=== PATIENT | female | born 1950 | race Caucasian/White ===

== ENCOUNTER 2020-12-22 09:56 | Outpatient (REF) | payer MEDICARE, MEDICAID, SELFPAY ==
--- NOTE | ~2020-12-22 | MM_ITS ---
EXAMINATION: BONE DENSITOMETRY CLINICAL INDICATION: Disorder of bone. COMPARISON: Baseline BD dated 03/01/2016. TECHNIQUE: Using a [employer] DXA System (software version: 13.1) manufactured by [employer], dual-energy x-ray absorptiometry was performed of the lumbar spine and left hip. The images are of good technical quality. Summary results are attached. FINDINGS: AP SPINE L1-L4: Current: BMD 0.910 g/cm2, Z-score -0.3, T-score -2.3, osteopenia, 4.4% decrease from baseline (<5% change is not significant). Baseline: BMD 0.952 g/cm2. LEFT FEMUR, NECK: Current: BMD 0.691 g/cm2, Z-score -0.6, T-score -2.5, osteoporosis. Baseline: BMD 0.715 g/cm2. LEFT FEMUR, TOTAL: Current: BMD 0.736 g/cm2, Z-score -0.5, T-score -2.2, osteopenia, 9.6% decrease from baseline (<5% change is not significant). Baseline: BMD 0.814 g/cm2. IDENTIFIED RISK FACTORS: Early menopause, secondary osteoporosis. HISTORY OF FRACTURE: None listed. MEDICATIONS: Vitamin D. MM/XR DEXA axial skeleton IMPRESSION: 1. DIAGNOSIS: Osteoporosis based on the lowest T-score value of -2.5 in the femoral neck applying World Health Organization criteria. 2. 10-YEAR FRACTURE RISK PREDICTION, FRAX: Major osteoporotic fracture (clinical spine, forearm, hip or shoulder) 13.1%. Hip fracture 3.4%. 3. Treatment Recommendations: NOF guidelines recommend consideration for treatment in postmenopausal women and men age 50 and older presenting with the following: -A hip or vertebral (clinical or morphometric) fracture. -T-score less than or equal to -2.5 at the femoral neck or spine after appropriate evaluation to exclude secondary causes. -Low bone mass at the hip or spine and a 10-year fracture probability by FRAX of greater than or equal to 3% for hip fracture or greater than or equal to 20% for major osteoporotic fracture based on the [place] adapted WHO algorithm. 4. Other Recommendations: All treatment decisions require clinical judgment and consideration of individual patient factors, including patient preferences, comorbidities, previous drug use, risk factors not captured in the FRAX model (e.g. frailty, falls, vitamin D deficiency, increased bone turnover, interval significant decline in bone density) and possible under or overestimation of fracture risk by FRAX. Additional medical evaluation for secondary cause of low bone mineral density may be appropriate. FUTURE SCAN RECOMMENDATION: People with diagnosed cases of osteoporosis or at high risk for fracture should have regular bone mineral density tests. For patients eligible for Medicare, routine testing is allowed once every 2 years. The testing frequency can be increased to one year for patients who have rapidly progressing disease, those who are receiving or discontinuing medical therapy to restore bone mass, or have additional risk factors.
--- NOTE | ~2020-12-22 | MM_ITS ---
EXAMINATION: MM SCREENING DIGITAL BREAST TOMOSYNTHESIS, BILATERAL CLINICAL INFORMATION: Screening. Asymptomatic. The lifetime risk of breast cancer based on the Tyrer-Cuzick Model is 3%. COMPARISON: Mammography: 12/16/2019, 12/10/2018, 09/26/2017, 08/31/2016, 05/19/2015 TECHNIQUE: Digital breast tomosynthesis is performed in both the craniocaudal and mediolateral oblique views along with computer-aided detection (CAD). Synthesized 2D images are generated from the tomosynthesis. FINDINGS: There are scattered areas of fibroglandular density (ACR BI-RADS breast composition Category b). There are no significant masses, abnormal calcifications, or other abnormalities. There is no developing density. The skin contours are smooth. There are chronic coarse calcifications in otherwise unremarkable left axillary nodes similar to prior studies. This may be related to remote granulomatous changes. Tattoo pigment may have a similar appearance. There are no significant changes from prior exams. MM/MM tomosynthesis screening BI IMPRESSION: No mammographic evidence of malignancy. ASSESSMENT: BI-RADS 2: Benign RECOMMENDATION: Routine annual mammography screening. This patient's information was entered into a reminder system with a target due date for their next mammogram.
== END 2020-12-22 09:57 | disposition home or self-care (01) ==
LOC: HO.MAMMO 09:56
PROVIDERS: Visit Provider Internal Medicine
DX: Z12.31 Encounter for screening mammogram for malignant neoplasm of breast (principal); Z13.820 Encounter for screening for osteoporosis; M81.0 Age-related osteoporosis without current pathological fracture; M89.9 Disorder of bone, unspecified; Z78.0 Asymptomatic menopausal state; Z79.899 Other long term (current) drug therapy
CPT/HCPCS: 77063; 77067; 77080

== ENCOUNTER 2021-12-27 07:47 | Outpatient (REF) | payer MEDICARE, MEDICAID, SELFPAY ==
--- NOTE | ~2021-12-27 | MM_ITS ---
EXAMINATION: MM SCREENING DIGITAL BREAST TOMOSYNTHESIS, BILATERAL CLINICAL INFORMATION: Screening. Asymptomatic. The lifetime risk of breast cancer based on the Tyrer-Cuzick Model is 2%. COMPARISON: Mammography: 12/22/2020, 12/16/2019, 12/10/2018 TECHNIQUE: Digital breast tomosynthesis is performed in both the craniocaudal and mediolateral oblique views along with computer-aided detection (CAD). Synthesized 2D images are generated from the tomosynthesis. FINDINGS: There are scattered areas of fibroglandular density (ACR BI-RADS breast composition Category b). There are no significant masses, abnormal calcifications, or other abnormalities. Parenchymal pattern is similar to prior exams. No developing density. There are chronic coarse calcifications left axillary node similar to prior studies likely related to old granulomatous changes. Tattoo pigment may have similar appearance. There are no significant changes from prior studies. MM/MM tomosynthesis screening BI IMPRESSION: No mammographic evidence of malignancy. ASSESSMENT: BI-RADS 2: Benign RECOMMENDATION: Routine annual mammography screening. This patient's information was entered into a reminder system with a target due date for their next mammogram.
== END 2021-12-27 07:48 | disposition home or self-care (01) ==
LOC: HO.MAMMO 07:47
PROVIDERS: Visit Provider Internal Medicine
DX: Z12.31 Encounter for screening mammogram for malignant neoplasm of breast (principal)
CPT/HCPCS: 77063; 77067

== ENCOUNTER 2022-11-01 08:47 | Outpatient (REF) | payer MEDICARE, MEDICAID, SELFPAY ==
[2022-11-01 14:34] LABS: MANUAL DIFF FLAG NO
[2022-11-01 14:39] LABS: Basophils Absolute Auto 0.1 X10*3/uL (0.0-0.2); Basophils Percent Auto 1.1 % (0-2); Eosinophils Absolute Auto 0.1 X10*3/uL (0.0-0.4); Eosinophils Percent Auto 2.2 % (0-4); Hematocrit 40.2 % (37.0-47.0); Hemoglobin 12.9 g/dl (12.0-16.0); Imm Gran Abs Auto 0.02 X10*3/uL (0.00-0.03); Imm Gran Pct Auto 0.3 % (0.0-0.4); Lymphocytes Absolute Auto 2.4 X10*3/uL (1.2-4.9); Lymphocytes Percent Auto 37.3 % (20-40); Mean Corpuscular HGB Conc 32.1 g/dl (31.0-35.0); Mean Corpuscular Hemoglobin 31.7 pg (27.0-33.0); Mean Corpuscular Volume 98.8 fL (80.0-98.0); Mean Platelet Volume 10.4 fL (9.4-12.3); Monocytes Absolute Auto 0.6 X10*3/uL (0.1-1.2); Monocytes Percent Auto 9.1 % (2-11); Neutrophils Absolute Auto 3.3 x10*3/uL (2.0-8.3); Platelet Count 289 X10*3/uL (160-400); Red Blood Count 4.07 X10*6/uL (4.20-5.50); Red Cell Distribution Width 14.9 % (11.0-16.0); White Blood Count 6.5 X10*3/uL (4.8-10.8)
[2022-11-01 15:31] LABS: Alanine Aminotransferase 41 U/L (0-31); Albumin Level 4.6 g/dL (3.5-5.0); Alkaline Phosphatase 80 U/L (39-117); Anion Gap 18 (12-20); Aspartate Amino Transferase 46 U/L (5-31); Bilirubin Total 0.8 mg/dL (0.0-1.0); Blood Urea Nitrogen 9 mg/dL (9-16); Calcium 9.9 mg/dL (8.4-10.2); Carbon Dioxide 23 mmol/L (22-29); Chloride 105 mmol/L (96-108); Cholesterol 248 mg/dL; Estimated Glomerular Filt Rate > 60; Glucose Fasting 67 mg/dL (60-99); HDL Cholesterol 90 mg/dL; LDL Cholesterol Calculated 134 mg/dl; Potassium 3.7 mmol/L (3.3-5.1); Sodium 142 mmol/L (135-145); Total Protein 7.5 g/dL (6.5-8.0); Triglycerides 124 mg/dL
[2022-11-01 15:48] LABS: TSH reflex Free T4 2.63 uIU/mL (0.32-4.0)
== END 2022-11-01 08:48 | disposition home or self-care (01) ==
LOC: HO.CHCLDS 08:47
PROVIDERS: Visit Provider Internal Medicine
DX: E78.00 Pure hypercholesterolemia, unspecified (principal); D75.89 Other specified diseases of blood and blood-forming organs
CPT/HCPCS: 36415; 80053; 80061; 84443; 85025

== ENCOUNTER 2022-12-23 09:47 | Outpatient (REF) | payer MEDICARE, MEDICAID, SELFPAY ==
--- NOTE | ~2022-12-23 | US_ITS ---
EXAMINATION: US ABDOMEN COMPLETE CLINICAL INFORMATION: Transaminitis. COMPARISON: None available. TECHNIQUE: Real-time imaging of the abdominal viscera. FINDINGS: PANCREAS: Normal. ABDOMINAL AORTA: The proximal, mid, and distal segments are normal in caliber. INFERIOR VENA CAVA: Visualized portions are normal. LIVER: The liver is normal in size. The liver contour is normal. There is diffuse increased liver parenchymal echogenicity. Anteriorly within the right hepatic lobe, a 6 mm benign, simple cyst is seen. This requires no imaging follow-up. There is no intrahepatic biliary duct dilatation seen. GALLBLADDER: Normal. The gallbladder is physiologically distended without evidence of stones, sludge, polyps, wall thickening or pericholecystic fluid. COMMON BILE DUCT: Normal in caliber measuring 0.71 cm in diameter. RIGHT KIDNEY: Normal. No hydronephrosis. No renal calculi or focal parenchymal lesions. The kidney measures 9.5 cm in maximum dimension. LEFT KIDNEY: There is mild lower pole focal cortical thinning. At the lower pole, a 6 mm benign, simple cyst is seen, which requires no imaging follow-up. No hydronephrosis or renal calculi. The kidney measures 10.5 cm in maximum dimension. SPLEEN: Normal. The spleen measures 7.7 cm in maximum dimension. FREE FLUID: None. US/US abdomen complete IMPRESSION: 1. There is generalized increase in hepatic echotexture, consistent with fatty infiltration or hepatocellular disease. Please correlate clinically. No focal hepatic mass or intrahepatic biliary dilatation is seen. 2. There is mild chronic focal cortical thinning at the lower pole of the left kidney.
== END 2022-12-23 09:48 | disposition home or self-care (01) ==
LOC: HO.US 09:47
PROVIDERS: PCP Internal Medicine; Visit Provider Internal Medicine
DX: M81.8 Other osteoporosis without current pathological fracture (principal)
CPT/HCPCS: 76700

== ENCOUNTER 2023-02-08 08:25 | Outpatient (REF) | payer MEDICARE, MEDICAID, SELFPAY ==
--- NOTE | ~2023-02-08 | MM_ITS ---
EXAMINATION: BONE DENSITOMETRY CLINICAL INDICATION: History of osteoporosis. COMPARISON: Previous BD dated 12/22/2020 and baseline BD dated 03/01/2016. TECHNIQUE: Using a [employer] DXA System (software version: 13.1) manufactured by [email or web address], dual-energy x-ray absorptiometry was performed of the lumbar spine and left hip. The images are of good technical quality. Summary results are attached. FINDINGS: LEFT FEMUR, NECK: Current: BMD 0.702 g/cm2, Z-score -0.5, T-score -2.4, osteopenia. Prior: BMD 0.691 g/cm2. Baseline: BMD 0.715 g/cm2. LEFT FEMUR, TOTAL: Current: BMD 0.761 g/cm2, Z-score -0.2, T-score -2.0, osteopenia, 3.4% increase from previous, 6.5% decrease from baseline (<5% change is not significant). Prior: BMD 0.735 g/cm2. Baseline: BMD 0.814 g/cm2. AP SPINE L1-L4: Current: BMD 0.891 g/cm2, Z-score -0.4, T-score -2.4, osteopenia, 2.1% decrease from previous, 6.4% decrease from baseline (<5% change is not significant). Prior: BMD 0.910 g/cm2. Baseline: BMD 0.952 g/cm2. IDENTIFIED RISK FACTORS: Menopause. HISTORY OF FRACTURE: None listed. MEDICATIONS: Calcium, vitamin D. MM/XR DEXA axial skeleton IMPRESSION: 1. DIAGNOSIS: Osteopenia based on the lowest T-score value of -2.4 in the lumbar spine and femur neck applying World Health Organization criteria. 2. 10-YEAR FRACTURE RISK PREDICTION, FRAX: Major osteoporotic fracture (clinical spine, forearm, hip or shoulder) 13.2%. Hip fracture 3.6%. 3. Treatment Recommendations: NOF guidelines recommend consideration for treatment in postmenopausal women and men age 50 and older presenting with the following: -A hip or vertebral (clinical or morphometric) fracture. -T-score less than or equal to -2.5 at the femoral neck or spine after appropriate evaluation to exclude secondary causes. -Low bone mass at the hip or spine and a 10-year fracture probability by FRAX of greater than or equal to 3% for hip fracture or greater than or equal to 20% for major osteoporotic fracture based on the [place] adapted WHO algorithm. 4. Other Recommendations: All treatment decisions require clinical judgment and consideration of individual patient factors, including patient preferences, comorbidities, previous drug use, risk factors not captured in the FRAX model (e.g. frailty, falls, vitamin D deficiency, increased bone turnover, interval significant decline in bone density) and possible under or overestimation of fracture risk by FRAX. Additional medical evaluation for secondary cause of low bone mineral density may be appropriate. FUTURE SCAN RECOMMENDATION: People with diagnosed cases of osteoporosis or at high risk for fracture should have regular bone mineral density tests. For patients eligible for Medicare, routine testing is allowed once every 2 years. The testing frequency can be increased to one year for patients who have rapidly progressing disease, those who are receiving or discontinuing medical therapy to restore bone mass, or have additional risk factors.
== END 2023-02-08 08:26 | disposition home or self-care (01) ==
LOC: HO.MAMMO 08:25
PROVIDERS: PCP Internal Medicine; Visit Provider Internal Medicine
DX: Z12.31 Encounter for screening mammogram for malignant neoplasm of breast (principal); Z13.820 Encounter for screening for osteoporosis; M81.8 Other osteoporosis without current pathological fracture
CPT/HCPCS: 77063; 77067; 77080

== ENCOUNTER → 2023-02-08 09:00 | Outpatient (BNV) | payer MEDICARE, MEDICAID, SELFPAY | PROVIDERS: PCP Internal Medicine; Visit Provider Radiology Diagnostic Radiology | DX: Z12.31 Encounter for screening mammogram for malignant neoplasm of breast (principal) | CPT/HCPCS: 77063; 77067 ==

== ENCOUNTER 2023-02-08 09:03 | Outpatient (REF) | payer MEDICARE, MEDICAID, SELFPAY ==
--- NOTE | ~2023-02-08 | XR_ITS ---
EXAMINATION: XR CHEST CLINICAL INFORMATION: 73-year-old female with chronic cough COMPARISON: None available. TECHNIQUE: 2 views of the chest were obtained. FINDINGS: No significant abnormality is noted involving the heart, lungs, mediastinum, bony thorax or soft tissues. XR/XR chest 2V IMPRESSION: Unremarkable examination.
== END 2023-02-08 09:04 | disposition home or self-care (01) ==
LOC: HO.XRAY 09:03
PROVIDERS: PCP Internal Medicine; Visit Provider Internal Medicine
DX: R05.3 Chronic cough (principal)
CPT/HCPCS: 71046

== ENCOUNTER 2023-08-04 09:22 | Outpatient (REF) | payer MEDICARE, MEDICAID, SELFPAY ==
[2023-08-04 14:44] LABS: MANUAL DIFF FLAG NO
[2023-08-04 15:19] LABS: Basophils Absolute Auto 0.1 X10*3/uL (0.0-0.2); Basophils Percent Auto 0.8 % (0-2); Eosinophils Absolute Auto 0.1 X10*3/uL (0.0-0.4); Eosinophils Percent Auto 1.2 % (0-4); Hematocrit 45.8 % (37.0-47.0); Hemoglobin 15.2 g/dl (12.0-16.0); Imm Gran Abs Auto 0.02 X10*3/uL (0.00-0.03); Imm Gran Pct Auto 0.3 % (0.0-0.4); Lymphocytes Absolute Auto 1.5 X10*3/uL (1.2-4.9); Lymphocytes Percent Auto 19.3 % (20-40); Mean Corpuscular HGB Conc 33.2 g/dl (31.0-35.0); Mean Corpuscular Hemoglobin 32.5 pg (27.0-33.0); Mean Corpuscular Volume 97.9 fL (80.0-98.0); Mean Platelet Volume 10.3 fL (9.4-12.3); Monocytes Absolute Auto 0.6 X10*3/uL (0.1-1.2); Monocytes Percent Auto 7.5 % (2-11); Neutrophils Absolute Auto 5.5 x10*3/uL (2.0-8.3); Neutrophils Percent Auto 70.9 % (45-73); Platelet Count 264 X10*3/uL (160-400); Red Blood Count 4.68 X10*6/uL (4.20-5.50); Red Cell Distribution Width 14.6 % (11.0-16.0); White Blood Count 7.8 X10*3/uL (4.8-10.8)
[2023-08-04 16:02] LABS: Erythrocyte Sedimentation Rate 23 MM/HR (0-20)
[2023-08-04 16:58] LABS: Alanine Aminotransferase 26 U/L (0-31); Albumin Level 4.5 g/dL (3.5-5.0); Alkaline Phosphatase 88 U/L (39-117); Anion Gap 15 (12-20); Aspartate Amino Transferase 30 U/L (5-31); Bilirubin Total 1.1 mg/dL (0.0-1.0); Blood Urea Nitrogen 13 mg/dL (9-16); Calcium 9.7 mg/dL (8.4-10.2); Carbon Dioxide 25 mmol/L (22-29); Chloride 104 mmol/L (96-108); Estimated Glomerular Filt Rate 58; Gamma Glutamyl Transpeptidase 20 U/L (7-33); Glucose Random 139 mg/dL (60-115); Iron 166 mcg/dL (30-160); Percent Iron Saturation 53 % (15-50); Potassium 3.7 mmol/L (3.3-5.1); Sodium 140 mmol/L (135-145); Total Iron Binding Capacity 311 mcg/dL (228-428); Total Protein 7.7 g/dL (6.5-8.0); Unsaturated Iron Binding 145 ug/dL
[2023-08-04 17:01] LABS: TSH reflex Free T4 1.43 uIU/mL (0.32-4.0)
== END 2023-08-04 09:23 | disposition home or self-care (01) ==
LOC: HO.CHCLDS 09:22
PROVIDERS: Visit Provider Family Medicine
DX: L29.9 Pruritus, unspecified (principal)
CPT/HCPCS: 36415; 80053; 82977; 83540; 84443; 85025; 85652; 86140; 87338

== ENCOUNTER 2024-01-03 13:21 | Outpatient (AMB) | payer MEDICARE, MEDICAID, SELFPAY ==
--- NOTE | 2024-01-03 13:22 | A.OFFVIS_ITS ---
Vital Signs 01/03/24 13:34 Height 5 ft 4 in Weight 121 lb 4.068 oz BMI 20.8 BP 97/59 L Blood Pressure Location Lt brachial Position Sitting Pulse 76 Intake Visit Reasons: pre colonoscopy Intake Note: New patient in office today for colonoscopy screening. CC: Patient's last colonoscopy 7 years ago at [facility] [place] [facility]. Patient denies having any GI concerns today. Hearing Aid Consultant Required: No Accompanied by: Self / Same As Patient Allergies No Known Allergies Allergy (Verified 01/03/24 13:37) HPI HPI pre colonoscopy: Details: 73-year-old female here for preprocedural meeting to discuss a screening colonoscopy. She is referred by [facility]. PMX fx right elbow SURGICAL HISTORY Colonoscopy - 2012= negative study Right arm fx repair * ALLERGIES;NKDA * [employer] LABS: Laboratory Tests 08/04/23 09:24 WBC 7.8 Hgb 15.2 Hct 45.8 Plt Count 264 Estimated GFR 58 Total Bilirubin 1.1 H GGT 20 AST 30 ALT 26 Alkaline Phosphatase 88 C-Reactive Protein 0.60 H TSH 1.43 Laboratory Tests 08/04/23 14:30 Stool H. pylori Ag NEGATIVE TODAY'S VISIT She would like the procedure in the morning and on an Wed if possible. She denies any bowel or upper GI problems.. She denies any cardiac or respiratory problems. NO ID problems. There are no prior problems with anesthesia or sedation. No known FHX crc or polyps. [facility] Surgical History History of surgery on arm H/O colonoscopy Social History Alcohol intake: current Alcohol intake frequency: holidays/special occasions only Patient Tobacco Use Status: Never used Tobacco Use of substances other than those prescribed or required for medical reasons: No Review of Systems Const Denies fatigue, Denies fever(s), Denies night sweats, Denies poor appetite and Denies weight loss ENT Reports Normal hearing present, Denies dental pain, Denies dysphagia, Denies hearing loss, Denies mouth pain, Denies odynophagia, Denies throat swelling, Denies tongue swelling and Reports other (Dentition adequate) Card Reports no additional complaints Resp Reports no additional complaints GI Details: Denies abdominal pain, Denies melena, Denies bloating, Denies hematochezia, Denies constipation, Denies GI cramping, Denies dysphagia, Denies excessive flatus, Denies early satiety, Denies heartburn, Denies diarrhea, Denies nausea, Denies odynophagia, Denies vomiting and Denies hematemesis Skin/Breast Denies pruritus, Denies lesions, Denies rash and Denies jaundice Neuro Reports Normal hearing present and Denies Abnormal speech present Endo Denies fatigue Aller/Immun Denies throat swelling and Denies tongue swelling Physical Exam Vital Signs: Last Vital Signs Pulse 76 01/03/24 13:34 BP 97/59 L 01/03/24 13:34 BMI result Body Mass Index 20.8 Const General: cooperative, no acute distress, well developed and well groomed Nutritional Appearance: average body habitus and well nourished Orientation/consciousness: oriented to person, oriented to place and oriented to time Limitations: No language barrier HEENT Head: Yes normocephalic and Yes atraumatic Eyes General: appearance normal, both eyes and all related structures Pupils: Equal, round and reactive pupils present Neck Neck: Yes normal visual inspection and Yes no lymphadenopathy Thyroid: Thyroid normal Resp Effort & Inspection: normal respiratory effort and able to speak in complete sentences Auscultation: clear to auscultation bilaterally Cardio Rate: regular rate Rhythm: regular rhythm Heart sounds: Normal, physiologic split S2 sound present Peripheral pulses: radial pulses present and posterior tibial pulses present GI Inspection: No distended and No Abdominal panniculus present Palpation (GI): Soft to palpation, nontender, no guarding, not rigid and No hepatosplenomegaly present Percussion: Yes normal to percussion Auscultation: normal bowel sounds Rectal Exam - Female: deferred Skin General skin exam: no rashes or lesions noted, turgor normal, skin not dry, no jaundice, No spider nevi and no striae Rashes: no rashes Nails: normal Neuro General: oriented to person, oriented to place and oriented to time Cranial nerves: Yes Equal, round and reactive pupils present and Yes Normal hearing present Speech: No Abnormal speech present Extrem General: Yes normal to inspection, No clubbing, No cyanosis and No edema Psych Appearance: grossly normal and well kempt Mental Status: mental status grossly normal Speech and movement: Normal speech and movement present Affect: normal affect Attitude: cooperative Thought process: Normal thought process present and not confabulating Thought content: Normal thought content present Insight: Good insight present (Psych) Judgement: Good judgement present (Psych) Assessment & Plan Assessment & Plan (1) Pre-op examination: Code(s): Z01.818 - Encounter for other preprocedural examination Category: Medical Plan She would like the procedure in the morning and on an Wed if possible. She denies any bowel or upper GI problems.. She denies any cardiac or respiratory problems. NO ID problems. There are no prior problems with anesthesia or sedation. No known FHX crc or polyps Orders: Orders Colonoscopy - GI Use Only 01/03/24 Z01.818 - Encounter for other preprocedural examination Medications: New sodium,potassium,mag sulfates 17.5-3.13-1.6 gram (Suprep Bowel Prep Kit) 480 mL orally; FOR COLONOSCOPY PREP 354 mL 0RF Coding Level of Care Code New Pt Level 3 (61553) Diagnoses Pre-op examination Z01.818
[2024-01-03 13:34] VITALS: BP 97/59; PULSE 76; BMI 20.8
== END 2024-01-03 13:54 | disposition home or self-care (01) ==
PROVIDERS: PCP Internal Medicine; Visit Provider Nurse Practitioner
DX: Z01.818 Encounter for other preprocedural examination (principal); Z12.11 Encounter for screening for malignant neoplasm of colon
CPT/HCPCS: 99024

== ENCOUNTER → 2024-01-03 13:21 | Outpatient (BNVA) | payer MEDICARE, MEDICAID, SELFPAY | PROVIDERS: PCP Internal Medicine; Visit Provider Nurse Practitioner | DX: Z01.818 Encounter for other preprocedural examination (principal) | CPT/HCPCS: 99212 ==

== ENCOUNTER 2024-02-13 10:24 | Outpatient (REF) | payer MEDICARE, MEDICAID, SELFPAY ==
--- NOTE | ~2024-02-13 | MM_ITS ---
EXAMINATION: MM SCREENING DIGITAL BREAST TOMOSYNTHESIS, BILATERAL CLINICAL INFORMATION: Screening. Asymptomatic. COMPARISON: Mammography: Comparison is made with available priors TECHNIQUE: Digital breast mammography with tomosynthesis is performed in both the craniocaudal and mediolateral oblique views along with computer-aided detection (CAD). FINDINGS: There are scattered areas of fibroglandular density (ACR BI-RADS breast composition Category b). There are no significant masses, abnormal calcifications, or other abnormalities. MM/MM tomosynthesis screening BI IMPRESSION: No mammographic evidence of malignancy. ASSESSMENT: BI-RADS BI-RADS 1 - Negative RECOMMENDATION: Routine annual mammography screening. 1 year F/U This examination should not preclude the clinical evaluation of a suspicious palpable abnormality. This patient's information was entered into a reminder system with a target due date for their next mammogram. Electronically signed by: Kamille Zimmer DO 02/21/2024 10:29 AM FELIBERTO
== END 2024-02-13 10:25 | disposition home or self-care (01) ==
LOC: HO.MAMMO 10:24
PROVIDERS: PCP Internal Medicine; Visit Provider Internal Medicine
DX: Z12.31 Encounter for screening mammogram for malignant neoplasm of breast (principal)
CPT/HCPCS: 77063; 77067

== ENCOUNTER → 2024-02-13 10:30 | Outpatient (BNV) | payer MEDICARE, MEDICAID, SELFPAY | PROVIDERS: PCP Internal Medicine; Visit Provider Internal Medicine | DX: Z12.31 Encounter for screening mammogram for malignant neoplasm of breast (principal) | CPT/HCPCS: 77063; 77067 ==

== ENCOUNTER 2024-03-11 08:55 | Outpatient (REF) | payer MEDICARE, MEDICAID, SELFPAY ==
[2024-03-11 14:17] LABS: MANUAL DIFF FLAG NO
[2024-03-11 14:28] LABS: Basophils Absolute Auto 0.1 X10*3/uL (0.0-0.2); Basophils Percent Auto 0.8 % (0-2); Eosinophils Absolute Auto 0.1 X10*3/uL (0.0-0.4); Eosinophils Percent Auto 1.2 % (0-4); Hematocrit 42.8 % (37.0-47.0); Hemoglobin 13.9 g/dl (12.0-16.0); Imm Gran Abs Auto 0.01 X10*3/uL (0.00-0.03); Imm Gran Pct Auto 0.1 % (0.0-0.4); Lymphocytes Absolute Auto 2.9 X10*3/uL (1.2-4.9); Lymphocytes Percent Auto 36.7 % (20-40); Mean Corpuscular HGB Conc 32.5 g/dl (31.0-35.0); Mean Corpuscular Hemoglobin 31.9 pg (27.0-33.0); Mean Corpuscular Volume 98.2 fL (80.0-98.0); Mean Platelet Volume 10.4 fL (9.4-12.3); Monocytes Absolute Auto 0.6 X10*3/uL (0.1-1.2); Monocytes Percent Auto 7.3 % (2-11); Neutrophils Absolute Auto 4.2 x10*3/uL (2.0-8.3); Neutrophils Percent Auto 53.9 % (45-73); Platelet Count 247 X10*3/uL (160-400); Red Blood Count 4.36 X10*6/uL (4.20-5.50); Red Cell Distribution Width 14.4 % (11.0-16.0); White Blood Count 7.8 X10*3/uL (4.8-10.8)
[2024-03-11 14:54] LABS: Alanine Aminotransferase 22 U/L (0-31); Albumin Level 4.7 g/dL (3.5-5.0); Anion Gap 17 (12-20); Aspartate Amino Transferase 36 U/L (5-31); Bilirubin Total 0.7 mg/dL (0.0-1.0); Blood Urea Nitrogen 11 mg/dL (9-16); Calcium 9.9 mg/dL (8.4-10.2); Carbon Dioxide 24 mmol/L (22-29); Chloride 102 mmol/L (96-108); Cholesterol 248 mg/dL (<200); Estimated Glomerular Filt Rate 59; Glucose Random 66 mg/dL (60-115); HDL Cholesterol 78 mg/dL (>40); LDL Cholesterol Calculated 151 mg/dL (<100); Potassium 4.2 mmol/L (3.3-5.1); Sodium 139 mmol/L (135-145); Total Protein 7.6 g/dL (6.5-8.0); Triglycerides 98 mg/dL (<150)
[2024-03-11 15:15] LABS: TSH reflex Free T4 2.07 uIU/mL (0.32-4.0)
[2024-03-11 15:50] LABS: Alkaline Phosphatase 83 U/L (39-117)
[2024-03-12 08:07] LABS: ~HepC Num1 0.08 S/CO (0.00-0.79); ~Hepatitis C Antibody Nonreactive (Nonreactive)
== END 2024-03-11 08:56 | disposition home or self-care (01) ==
LOC: HO.CHCLDS 08:55
PROVIDERS: Visit Provider Internal Medicine
DX: R21 Rash and other nonspecific skin eruption (principal)
CPT/HCPCS: 36415; 80053; 80061; 84443; 85025; 86803

== ENCOUNTER 2024-12-31 09:39 | Outpatient (REF) | payer MEDICARE, SELFPAY ==
[2024-12-31 10:45] LABS: MANUAL DIFF FLAG NO
[2024-12-31 11:15] LABS: Hematocrit 40.3 % (37.0-47.0); Hemoglobin 13.5 g/dl (12.0-16.0); Imm Gran Abs Auto 0.03 X10*3/uL (0.00-0.03); Imm Gran Pct Auto 0.4 % (0.0-0.4); Lymphocytes Absolute Auto 2.5 X10*3/uL (1.2-4.9); Mean Corpuscular HGB Conc 33.5 g/dl (31.0-35.0); Mean Corpuscular Hemoglobin 31.9 pg (27.0-33.0); Mean Corpuscular Volume 95.3 fL (80.0-98.0); NRBC Abs Auto 0.000 X10*3/uL (0.0-0.012); NRBC Pct Auto 0.0 /100WBC (0.0-0.2); Platelet Count 359 X10*3/uL (160-400); Red Blood Count 4.23 X10*6/uL (4.20-5.50); White Blood Count 8.3 X10*3/uL (4.8-10.8)
[2024-12-31 12:06] LABS: Alanine Aminotransferase 29 U/L (0-31); Albumin Level 4.8 g/dL (3.5-5.0); Alkaline Phosphatase 86 U/L (39-117); Anion Gap 13 (12-20); Aspartate Amino Transferase 39 U/L (5-31); Blood Urea Nitrogen 9 mg/dL (9-16); Calcium 9.7 mg/dL (8.4-10.2); Carbon Dioxide 27 mmol/L (22-29); Chloride 106 mmol/L (96-108); Cholesterol 237 mg/dL (<200); Estimated Glomerular Filt Rate 56; HDL Cholesterol 76 mg/dL (>40); Potassium 3.8 mmol/L (3.3-5.1); Sodium 142 mmol/L (135-145); Total Protein 7.6 g/dL (6.5-8.0); Triglycerides 118 mg/dL (<150)
--- OUTSIDE RECORDS SUMMARY | 2024-12-31 12:21 | XMS_ITS | Encounter Summary ---
Author Organization [employer] Address [address] [place] [address] [facility] [place] [address] Care Team Providers Care Environmental Technical Officer Name Role Phone Cr Carlton MD Primary Care Provider [phone] Reason for Referral * Imaging (Routine) - Closed Specialty Diagnoses / Procedures Referred By [employer] [facility]in[facility] Referred To Contact Radiology Diagnoses Transaminitis Fatty liver Procedures US Abdomen Complete Cr Carlton MD [address] [place] [address] Phone: tel: fax: [address] Phone: tel: fax: Referral ID Status Reason Start Date Expiration Date Visits Re quested Visits Authorized [id number] Closed 03/11/2024 03/11/2025 1 1 Encounter Details Date Type Department Care Team (Late st Contact Info) Description 03/11/2024 Orders Only [facility] [address] [place], [place] [phone] Cr Carlton MD [address], [place] [id number] Transaminitis (Primary Dx); Fatty liver; Macrocytosis Social History Tobacco Use Types Packs/Day Years Used Date Smoking Tobacco: Never Smokeless Tobacco: Never Comments Unknown Sex and Gender Information Value Date Recorded Sex Assigned at Female 02/14/2022 10:21 AM EDT Legal Sex Female 10:21 AM EDT Gender Identity Female 02/14/2022 10:21 AM EDT Sexual Orientation Straight 11/01/2023 3: 41 PM EDT documented as of this encounter Plan of Treatment Upcoming Encounters Date Type Department Care Team (Late st Contact Info) Description 02/19/2025 9:45 AM EST Office Visit [facility] [address] [place] [address] Cr Carlton MD [address] [place] [address] Scheduled Orders Name Type Priority Associated Diagnoses Orde r Schedule US Abdomen Complete Imaging Routine Transaminitis Fatty liver Expected: 03/11/2024, Expires: 03/11/2025 Vitamin B12/Folate, Serum Panel Lab Routine Macrocytosis Expected: 03/11/2024, Expires: 03/11/2025 documented as of this encounter Visit Diagnoses Diagnosis Transaminitis- Primary Nonspecific elevation of levels of transaminase or lactic acid dehydrogenase (LDH) Fatty liver Other chronic nonalcoholic liver disease Macrocytosis Other specified diseases of blood and blood-forming organs documented in this encounter Care Teams Environmental Technical Officer Relationship Specialty Start Date End Date Cr Carlton MD [address] [place] [address] PCP - General Internal Medicine 10/21/20 documented as of this encounter
--- OUTSIDE RECORDS SUMMARY | 2024-12-31 12:21 | XMS_ITS | Encounter Summary ---
Author Organization [employer] Address [address] [place] [address] 7 [place] [address] Care Team Providers Care Workcell Operator Name Role Phone Cr Carlton MD Primary Care Provider [phone] Encounter Details Date Type Department Care Team ([facility] Contact Info) Description 02/08/2023 Orders Only [facility] [address] [place] [address] Cr Carlton MD [address] [place] [address] Other osteoporosis without current pathological fracture (Primary Dx) Social History Tobacco Use Types Packs/Day Years Used Date Smoking Tobacco: Never Smokeless Tobacco: Never Comments Unknown Sex and Gender Information Value Date Recorded Sex Assigned at Female 02/14/2022 10:21 AM EDT Legal Sex Female 10:21 AM EDT Gender Identity Female 02/14/2022 10:21 AM EDT Sexual Orientation Straight 11/01/2023 3: 41 PM EDT COVID-19 Exposure Response Date Recorded In the last 10 days, have yo u been in contact with someone who was confirmed or suspected to have Coronavirus/COVID-19? No / Unsure 01/12/2023 11:06 AM EDT documented as of this encounter Plan of Treatment Upcoming Encounters Date Type Department Care Team ([facility] Contact Info) Description 02/19/2025 9:45 AM EST Office Visit [facility] [address] [place] [address] Cr Carlton MD [address] [place], [place] [id number] Scheduled Orders Name Type Priority Associated Diagnoses Orde r Schedule Vitamin D 25 hydroxy Lab Routine Other osteoporosis without current pathological fracture Expected: 02/13/2023 (Approximate), Expires: 2024 documented as of this encounter Procedures Procedure Name Priority Date/Time Associated Diagnosis Comments XR CHEST 2 VIEWS Routine 02/08/2023 9:17 AM EDT BI MAMMOGRAM SCREENING TOMOSYNTHESIS BILATERAL Routine 02/08/2023 8:41 AM EDT documented in this encounter Results * XR Chest 2 Views (02/08/2023 9:17 AM EDT) Anatomical Region Laterality Modality Chest Radiographic Kimberley ging 02/08/2023 9:17 AM EDT Narrative 2023 10:32 AM EDT [place] [address] XRay Report Signed Patient: Shakira Caro MR#: [id number] [birth year] : 1950 Acct:[id number] Age/Sex: 73 / F ADM Date: 02/08/23 Loc: [facility] Attending Dr: Cr Carlton MD Ordering Physician: Cr Carlton MD Date of Service: 02/08/23 Procedure(s): XR chest 2V Accession Number(s): [id number] cc: Cr Carlton MD EXAMINATION: XR CHEST CLINICAL INFORMATION: 73-year-old female with chronic cough COMPARISON: None available. TECHNIQUE: 2 views of the chest were obtained. FINDINGS: No significant abnormality is noted involving the heart, lungs, mediastinum, bony thorax or soft tissues. XR/XR chest 2V IMPRESSION: Unremarkable examination. Dictated By: Ger Cueva MD Signed By: <Electronically signed by Ger Cueva MD in [place]> 02/09/23 1027 DD/ 0917 TD/TT: Box Stacker: Procedure Note Donotuseinterpreter, Image - [address] [place] [address] XRay Report Signed Patient: Shakira Caro AMR#: [id number] 20 : 1950cct:[id number] Age/Sex: 73 / FADM Date: 02/08/23 Loc: XRAY Attending Dr: Cr Carlton MD Ordering Physician: Cr Carlton MD Date of Service: 02/08/23 Procedure(s): XR chest 2V Accession Number(s): [id number] cc: Cr Carlton MD EXAMINATION: XR CHEST CLINICAL INFORMATION: 73-year-old female with chronic cough COMPARISON: None available. TECHNIQUE: 2 views of the chest were obtained. FINDINGS: No significant abnormality is noted involving the heart, lungs, mediastinum, bony thorax or soft tissues. XR/XR chest 2V IMPRESSION: Unremarkable examination. Dictated By: Ger Cueva MD Signed By: <Electronically signed by Ger Cueva MD in OV> 02/09/23 1027 DD/ 0917 TD/TT: Box Stacker: Cr Carlton MD IMG XR PROCEDURES Final Res ult * BI Mammogram Screening Tomosynthesis Bilateral (02/08/2023 8:41 AM EDT) Anatomical Region Laterality Modality Breast Bilateral Mammography 02/08/2023 8:41 AM EDT Narrative 02/25/2023 1:38 PM [facility] [address] [place] [address] Mammography Report Signed Patient: Shakira Caro MR#: [id number] [birth year] : 1950 Acct:[id number] Age/Sex: 73 / F ADM Date: 02/08/23 Loc: HO.MAMMO Attending Dr: Cr Carlton MD Ordering Physician: Cr Carlton MD Results: 1 Negative Date of Service: 02/08/23 Follow Up: 1 Year From Orig inal Mammogram Procedure(s): MM tomosynthesis screening BI Accession Number(s): [id number] cc: Cr Carlton MD EXAMINATION: MM SCREENING DIGITAL BREAST TOMOSYNTHESIS, BILATERAL CLINICAL INFORMATION: Screening. Asymptomatic. COMPARISON: Mammography: This study is compared with prior exams dating back to 2019. TECHNIQUE: Digital breast tomosynthesis is performed in both the craniocaudal and mediolateral oblique views along with computer-aided detection (CAD). Synthesized 2D images are generated from the tomosynthesis. FINDINGS: The breasts are almost entirely fatty (ACR BI-RADS breast composition Category a). There are no significant masses, abnormal calcifications, or other abnormalities. MM/MM tomosynthesis screening BI IMPRESSION: No mammographic evidence of malignancy. ASSESSMENT: BI-RADS BI-RADS 1 - Negative RECOMMENDATION: Routine annual mammography screening. 1 year F/U This examination should not preclude the clinical evaluation of a suspicious palpable abnormality. This patient's information was entered into a reminder system with a target due date for their next mammogram. Dictated By: Rosalinda Knight MD Signed By: <Electronically signed by Rosalinda Knight MD in OV> 02/25/23 1334 DD/ 0841 TD/TT: Box Stacker: Procedure Note Donotuseinterpreter, Image - 02/25/2023 [facility] [address] [place], [place] [address] Mammography Report Signed Patient: Shakira Caro AMR#: [id number] 20 : 2Acct:[id number] Age/Sex: 73 / FADM Date: 02/08/23 Loc: HO.MAMMO Attending Dr: Cr Carlton MD Ordering Physician: Cr Carlton MDResults: 1 Negative Date of Service: 02/08/23Follow Up: 1 Year From Orig inal Mammogram Procedure(s): MM tomosynthesis screening BI Accession Number(s): [id number] cc: Cr Carlton MD EXAMINATION: MM SCREENING DIGITAL BREAST TOMOSYNTHESIS, BILATERAL CLINICAL INFORMATION: Screening. Asymptomatic. COMPARISON: Mammography: This study is compared with prior exams dating back to 2019. TECHNIQUE: Digital breast tomosynthesis is performed in both the craniocaudal and mediolateral oblique views along with computer-aided detection (CAD). Synthesized 2D images are generated from the tomosynthesis. FINDINGS: The breasts are almost entirely fatty (ACR BI-RADS breast composition Category a). There are no significant masses, abnormal calcifications, or other abnormalities. MM/MM tomosynthesis screening BI IMPRESSION: No mammographic evidence of malignancy. ASSESSMENT: BI-RADS BI-RADS 1 - Negative RECOMMENDATION: Routine annual mammography screening. 1 year F/U This examination should not preclude the clinical evaluation of a suspicious palpable abnormality. This patient's information was entered into a reminder system with a target due date for their next mammogram. Dictated By: Rosalinda Knight MD Signed By: <Electronically signed by Rosalinda Knight MD in OV> 02/25/23 1334 DD/ 0841 TD/TT: Box Stacker: Cr Carlton MD IMG BI PROCEDURES Edited Re sult - Final documented in this encounter Visit Diagnoses Diagnosis Other osteoporosis without current pathological fracture- Primary documented in this encounter Care Teams Workcell Operator Relationship Specialty Start Date End Date Cr Carlton MD [address] [place] [id number] PCP - General Internal Medicine 10/21/20 documented as of this encounter
--- OUTSIDE RECORDS SUMMARY | 2024-12-31 12:21 | XMS_ITS | Clinical Summary ---
Author Organization [employer] Address [address] [place] [address] Care Team Providers Care Research Software Engineer Name Role Phone Cr Carlton MD Primary Care Provider [phone] Allergies No known active allergies Medications calcium carbonate (Os-Gee) 1250 (500 Ca) MG tablet Take 1 tablet by mouth at bed time. 05/04/19 17 Active alendronate (Fosamax) 70 MG tablet take 1 Tablet by Oral route once a week 12/25/19 21 Active B Complex Vitamins (vitamin B complex) tabletIndicati ons:Macrocytos is TAKE 1 TABLET BY MOUTH EVERY DAY ONE DOSE 30 tablet 11 03/28/20 22 Active B-Complex, Folic Acid, tabletIndicati ons:Other specified diseases of blood and blood-forming organs TAKE ONE TABLET BY MOUTH EVERY DAY 30 tablet 11 04/24/19 24 Active betamethasone valerate (Valisone) 0.1 % ointment Apply topically 2 times daily. 90 g 07/24/19 24 Active ibuprofen 600 MG tabletIndicati ons:Chronic pain syndrome TAKE ONE TABLET THREE TIMES DAILY WITH FOOD NEEDED FOR PAIN 60 tablet 3 08/10/19 24 Active Vitamins-Lipot ropics (B Complex Formula 1, Lipotrop,) tabletIndicati ons:Other specified diseases of blood and blood-forming organs TAKE ONE TABLET BY MOUTH EVERY DAY 30 tablet 11 06/28/19 25 Active cholecalcifero l VITAMIN D (Vitamin D-3) 50 MCG (1999 UT) capsuleIndicat ions:Low vitamin D level TAKE ONE CAPSULE BY MOUTH EVERY DAY 30 capsule 5 08/14/19 25 Active ezetimibe (Zetia) 10 MG tablet TAKE ONE TABLET BY MOUTH EVERY DAY 30 tablet 5 09/18/19 25 Active atorvastatin (Lipitor) 80 MG tabletIndicati ons:Hyperchole sterolemia TAKE ONE TABLET BY MOUTH EVERY DAY 30 tablet 3 11/09/19 25 Active famotidine (Pepcid) 20 MG tabletIndicati ons:Gastroesop hageal reflux disease without esophagitis Take 1 tablet (20 mg) by mouth Once per day. 30 tablet 11 12/20/19 25 026 Active melatonin 5 MG tabletIndicati ons:Primary insomnia 1 tab at bedtime 30 tablet 2 12/20/19 25 Active mirtazapine (Remeron) 15 MG tablet Take 1 tablet by mouth at bed time. 11/29/19 17 025 Discontinued(Th erapy completed) zoster vaccine-recomb inant adjuvanted (Shingrix) 50 MCG/0.5ML vaccine Inject 0.5 mL into the shoulder, thigh, or buttocks. 12/04/19 21 025 Discontinued(Th erapy completed) fluticasone (Flonase) 50 MCG/ACT nasal sprayIndicatio ns:Chronic cough Administer 1-2 sprays into each nostril in the morning. Shake gently. Before first use, prime pump. After use, clean tip and replace cap. 16 g 11 02/03/20 23 025 Discontinued(Th erapy completed) fexofenadine (Archana) 180 MG tablet Take 1 tablet (180 mg) by mouth if needed each day (Allergies). 30 tablet 1 07/06/19 24 025 Discontinued(Th erapy completed) pseudoephedrin e (Sudafed) 30 MG tabletIndicati ons:Skin rash Take 1 tablet (30 mg) by mouth every 4 (four) hours if needed for congestion for up to 10 days. 30 tablet 07/06/19 24 025 Discontinued(Th erapy completed) cetirizine (ZyrTEC) 10 MG tabletIndicati ons:Rash Take 1 tablet (10 mg) by mouth in the morning. 30 tablet 07/24/19 24 025 Discontinued doxepin (SINEquan) 25 MG capsule Take 1 capsule (25 mg) by mouth at bedtime. 30 capsule 08/04/19 24 025 Discontinued(Th erapy completed) hydrOXYzine HCl (Atarax) 25 MG tabletIndicati ons:Pruritus,S kin rash Take 1 tablet (25 mg) by mouth if needed in the morning, at noon, and at bedtime for itching. 90 tablet 3 09/26/19 24 025 Discontinued(Th erapy completed) Acetylcysteine 600 MG capsuleIndicat ions:Nasal congestion 1 cap 2 times a day 60 capsule 3 09/26/19 24 025 Discontinued(Th erapy completed) ibuprofen 600 MG tabletIndicati ons:Chronic pain syndrome TAKE ONE TABLET THREE TIMES DAILY WITH FOOD NEEDED FOR PAIN 60 tablet 11/21/19 25 025 Discontinued Active Problems Problem Noted Date Diagnosed Date Rash 01/12/2023 Assessment & Plan (08/04/2023 10:05 AM EDT): Much improvement on lower extremities, but upper extremities and torso are worsened. Continue on medications and ordering lab work to further investigate source of rash. Relevant Medications Doxepin (Sinequan) 25 MG capsule Assessment & Plan (07/24/2023 12:13 PM EDT): Patient with excoriation in her upper back, hands and legs. Ddx scabies, atopic dermatitis, will treat, patient concerned, will schedule f.up with me next week. Assessment & Plan (01/12/2023 11:51 AM EDT): -Patient with complaints of itchiness on both sides of the back will be prescribed Kenalog to treat affected are, and Zyrtec. -Advised patient to follow up with PCP. 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 Hypercholesterolemia 10/08/1996 Encounters Date Type Department Care Team Description 12/19/2024 9:45 AM EDT Office Visit [facility] MED & PEDS [address] [place] [address] Cr Carlton MD Hypercholesterolemia (Primary Dx); Decreased hearing of left ear; Gastroesophageal reflux disease without esophagitis; Primary insomnia; Encounter for immunization 12/19/2024 Travel 12/18/2024 Telephone [facility] MED & PEDS [address] [place] [address] Cr Carlton MD Chart Prep 12/11/2024 Patient Outreach [facility] MEDICINE [address] [place] [address] Cr Carlton MD Pre-visit Planning (Pre visit planning LVM ) 11/19/2024 Refill [facility] [address] [place] [address] Cr Carlton MD Chronic pain syndrome 11/08/2024 Refill [facility] MED[facility] [address], [place] [phone] Cr Carlton MD Hypercholesterolemia 10/01/2024 Refill [facility] [address], [place] [phone] Cr Carlton MD Chronic pain syndrome from Last 3 Months Immunizations Immunization Administration Dates Next Due Influenza High-dose Quadrivalent Preservative Fr ee 01/25/2022,02/22/2021 Influenza injectable quadriv alent IIV4 with preservative 01/26/2016,01/14/2015 Influenza injectable quadrivalent preservative f ree 01/12/2023 Influenza, High Dose Seasonal, Preservative Free 02/21/2024 Influenza, IIV3, injectable 01/21/2014 Pneumococcal Conjugate PCV 20 12/19/2024 Tdap 12/19/2024,11/07/2012 Zoster, Recombinant 02/22/2021,12/22/2020 Zoster, live 11/28/2016 Social History Tobacco Use Types Packs/Day Years Used Date Smoking Tobacco: Never Smokeless Tobacco: Never Tobacco Cessation:Counseling Given: No Depression Answer Date Recorded Patient Health Questionnaire-9 Score 4 12/19/2024 Patient Health Questionnaire-9 Score 4 12/19/2024 Last PHQ-9: Questionnaire Data Not on file 0 12/19/2024 Housing Stability Answer Date Recorded What is your housing situation today? I have brayden lau 12/19/[address] you li ve. Do you have problems with any of the following? None of the above 12/19/2024 Food Insecurity Answer Date Recorded Within the past 12 months, y ou worried that your food would run out before you got money to buy more: Never True 12/19/2024 Within the past 12 months,th e food you bought just didn't last and you didn't have enough money to get more: Never True 07/2024 Transportation Answer Date Recorded In the past 12 months, has l ack of transportation kept you from medical appts, meetings, work or from getting things needed for daily living? No 12/19/2024 Utilities Answer Date Recorded In the past 12 months, has t he electric, gas, oil or water company threatened to shut off services in your home? No 12/19/2024 Depression Answer Date Recorded Patient Health Questionnaire-2 Score 0 12/19/2024 Internet Access Answer Date Recorded Internet Access Q1 Yes 12/19/2024 Internet Access Q2 Not on file 12/19/2024 Comments Unknown Sex and Gender Information Value Date Recorded Sex Assigned at Female 02/14/2022 10:21 AM EDT Legal Sex Female 10:21 AM EDT Gender Identity Female 02/14/2022 10:21 AM EDT Sexual Orientation Straight 11/01/2023 3: 41 PM EDT Last Filed Vital Signs Vital Sign Reading Time Taken Comments Blood Pressure 126/84 12/19/2024 9:40 AM EDT Pulse 78 12/19/2024 9:40 AM EDT Temperature 36.9 C (98.5 F) 12/19/2024 9:40 AM EDT Respiratory Rate 20 12/19/2024 9:40 AM EDT Oxygen Saturation 98% 12/19/2024 9:40 AM EDT Inhaled Oxygen Concentration - - Weight 55.2 kg (121 lb 9.6 oz) 12/19/2024 9:40 A M EDT Height 160 cm (5' 3 ) 12/19/2024 9:40 AM EDT Body Mass Index 21.54 12/19/2024 9:40 AM EDT Plan of Treatment Upcoming Encounters Date Type Department Care Team (Late st Contact Info) Description 02/19/2025 9:45 AM EST Office Visit [facility] MED & PEDS [address] [place], [place] [phone] Cr Carlton MD [address] [place], [place] [phone] Health Maintenance Due Date Last Done Comments CT Colonography 1950 Dental Oral Exam 1950 Dental Prophylaxis 1950 Dental X-Ray: Bitewings 1950 Dental X-Ray: Full Mouth 1950 FIT DNA/Cologuard 1950 FIT 1950 FOBT 1950 Sigmoidoscopy 1950 Hepatitis A Vaccines (1 of 2 - Risk 2-dose series) 02/08/1971 Hepatitis B Vaccines (1 of 3 - Risk 3-dose series) 2012 RSV Patients and Patients Aged 60 years or older (1 - Risk 60-74 years 1-dose series) 2012 Colonoscopy 02/12/2023 02/12/2013 Colorectal Cancer Screening 02/12/2023 COVID-19 Vaccine ( season) 2024 01/25/2022, 08/13/2020, 07/23/2020 Influenza Vaccine (#1) 2024 , 01/12/2023, 01/25/2022, Additional history exists Alcohol/Substance Use Screening 12/19/2025 12/19/2024 Depression Screening 12/19/2025 12/19/2024, 12/20/19 SDOH Screening 12/19/2025 12/19/2024 Tobacco Screening 12/19/2025 12/19/2024 Mammogram 02/12/2026 02/13/2024, 01/16, 12/27/2021, Additional history exists DTaP/Tdap/Td Vaccines (3 - Td or Tdap) 12/19/2034 12/19/2024, 11/07/2012 Zoster Vaccines Completed 02/22/2021, 10/2020, 11/28/2016 Hepatitis C Screening Completed 03/11/2024 Pneumococcal Vaccine: 50+ Years Completed 12/19/2024 HIB Vaccines Aged Out No longer eligi ble based on patient's age to complete this topic HPV Vaccines Aged Out No longer eligi ble based on patient's age to complete this topic IPV Vaccines Aged Out No longer eligi ble based on patient's age to complete this topic Meningococcal B Vaccine Aged Out No l onger eligible based on patient's age to complete this topic Meningococcal Vaccine Aged Out No tin bibi eligible based on patient's age to complete this topic RSV under 20 months Aged Out No longe r eligible based on patient's age to complete this topic Rotavirus Vaccines Aged Out No longer eligible based on patient's age to complete this topic Procedures Procedure Name Priority Date/Time Associated Diagnosis Comments TSH W/REFLEX TO FT4 Routine 12/31/2024 9 :41 AM EDT Hypercholesterolem ia LIPID PANEL, STANDARD Routine 12/31/2024 9:41 AM EDT Hypercholesterolem ia COMPREHENSIVE METABOLIC PANEL Routine 12/31/2024 9:41 AM EDT Hypercholesterolem ia CBC WITH AUTO DIFFERENTIAL Routine 12/31/2024 9:41 AM EDT Hypercholesterolem ia HEPATITIS C AB W/REFL TO HCV RNA, QN, PCR Routine 03/11/2024 8:57 AM EST Skin rash BI MAMMOGRAM SCREENING TOMOSYNTHESIS BILATERAL Routine 02/13/2024 10:30 AM EDT HM COLONOSCOPY Routine 02/12/2013 from Last 3 Months or Most Recently Relevant to Health Maintenance Results * TSH with Reflex to Free T4 (12/31/2024 9:41 AM EDT) TSH reflex Free T4 1.64 0.32 - 4.0 uIU/mL [facility] Blood Venous blood specimen / Unknown 12/31/2024 9:41 AM EDT 12/31/2024 10:42 AM EDT us Cr Carlton MD LAB BLOOD ORDERABLES Final Result [facility] [address] [place] [phone] * CBC auto differential (12/31/2024 9:41 AM EDT) White Blood Count 8.3 4.8 - 10.8 X10*3/uL [facility] Red Blood Count 4.23 4.20 - 5.50 X10*6/uL [facility] Hemoglobin 13.5 12.0 - 16.0 g/dl [facility] Hematocrit 40.3 37.0 - 47.0 % [facility] Mean Corpuscular Volume 95.3 80.0 - 98.0 fL [facility] Mean Corpuscular Hemoglobin 31.9 27.0 - 33.0 pg [facility] Mean Corpuscular HGB Conc 33.5 31.0 - 35.0 g/dl [facility] Red Cell Distribution Width 14.0 11.0 - 16.0 % [facility] Platelet Count 359 160 - 400 X10*3/uL [facility] Mean Platelet Volume 10.1 9.4 - 12.3 fL [facility] Neutrophils Percent Auto 60.7 45 - 73 % [facility] Imm Gran Pct Auto 0.4 0.0 - 0.4 % [facility] Lymphocytes Percent Auto 30.7 20 - 40 % [facility] Monocytes Percent Auto 6.3 2 - 11 % [facility] Eosinophils Percent Auto 0.8 0 - 4 % [facility] Basophils Percent Auto 1.1 0 - 2 % [facility] NRBC Pct Auto 0.0 0.0 - 0.2 /100WBC [facility] Neutrophils Absolute Auto 5.0 2.0 - 8.3 x10*3/uL [facility] Imm Gran Abs Auto 0.03 0.00 - 0.03 X10*3/uL [facility] Lymphocytes Absolute Auto 2.5 1.2 - 4.9 X10*3/uL [facility] Monocytes Absolute Auto 0.5 0.1 - 1.2 X10*3/uL [facility] Eosinophils Absolute Auto 0.1 0.0 - 0.4 X10*3/uL [facility] Basophils Absolute Auto 0.1 0.0 - 0.2 X10*3/uL [facility] NRBC Abs Auto 0.000 0.0 - 0.012 X10*3/uL [facility] Blood Venous blood specimen / Unknown 12/31/2024 9:41 AM EDT 12/31/2024 10:42 AM EDT us Cr Carlton MD LAB BLOOD ORDERABLES Final Result Performing Organization Address [facility] Co de Phone Number [facility] [address] [place] [address] [phone] * (ABNORMAL) Lipid Panel, Standard (12/31/2024 9:41 AM EDT) Triglycerides 118 <150 mg/dL [facility] Comment:Desirable Triglyceri de: less than 150 mg/dLBorderline High Triglyceride 150-199 mg/dLHigh Triglyceride: 200-499 mg/dLVery High Triglyceride: greater than or equal to 5OO mg/dL Cholesterol 237(H) <200 mg/dL [facility] Comment:Desirable Cholestero l: less than 200 mg/dLBorderline High Cholesterol: 200-239 mg/dLHigh Cholesterol: greater than 239 mg/dL LDL Cholesterol Calculated 138(H) <100 mg/dL [facility] Comment:Desirable LDL: less than 100 mg/dLNear Optimal/Above Optimal LDL: 110- 129 mg/dLBorderline High LDL: 130-159 mg/dLHigh LDL: 160-189 mg/dLVery High LDL: greater than or equal to 190 mg/dL HDL Cholesterol 76 >40 mg/dL [facility] Comment:Desirable HDL: great er than 40 mg/dL Note: This HDL assay may give artificially low results in patients with liver disease. Blood Venous blood specimen / Unknown 12/31/2024 9:41 AM EDT 12/31/2024 10:42 AM EDT us Cr Carlton MD LAB BLOOD ORDERABLES Final Result [facility] [address] [place] [phone] * (ABNORMAL) Comprehensive Metabolic Panel (12/31/2024 9:41 AM EDT) Sodium 142 135 - 145 mmol/L [facility] Potassium 3.8 3.3 - 5.1 mmol/L [facility] Chloride 106 96 - 108 mmol/L [facility] Carbon Dioxide 27 22 - 29 mmol/L [facility] Anion Gap 13 12 - 20 [facility] Urea Nitrogen (BUN) 9 9 - 16 mg/dL [facility] Creatinine, Serum 0.97 0.5 - 1.4 mg/dL [facility] Estimated Glomerular Filt Rate 56 [facility] Comment:Chronic Kidney Disea se: Estimated GFR < 60 mL/min/[id number] Kidney Disease: Estimated GFR < 15 mL/min/1.73m2 Glucose 91 60 - 115 mg/dL [facility] Calcium 9.7 8.4 - 10.2 mg/dL [facility] Bilirubin, Total 0.8 0.0 - 1.0 mg/dL [facility] Aspartate Amino Transferase 39(H) 5 - 31 U/L [facility] Alanine Aminotransferase 29 0 - 31 U/L [facility] Total Protein 7.6 6.5 - 8.0 g/dL [facility] Albumin Level 4.8 3.5 - 5.0 g/dL [facility] Alkaline Phosphatase 86 39 - 117 U/L [facility] Blood Venous blood specimen / Unknown 12/31/2024 9:41 AM EDT 12/31/2024 10:42 AM EDT us Cr Carlton MD LAB BLOOD ORDERABLES Final Result [facility] [address] [place] [address] [phone] * Hepatitis C Antibody with Reflex to HCV, RNA, Quantitative, Real-Time PCR (03/11/2024 8:57 AM EST) Hepatitis C Antibody Nonreactive Nonreactive [facility] Comment:Antibodies to HCV no t detected; does not exclude early acuteHCV infection. Blood Venous blood specimen / Unknown 03/11/2024 8:57 AM EST 03/11/2024 2:13 PM EST us Cr Carlton MD LAB BLOOD ORDERABLES Final Result [facility] [address] [place] [phone] [phone] * BI Mammogram Screening Tomosynthesis Bilateral (02/13/2024 10:30 AM EDT) Anatomical Region Laterality Modality Breast Bilateral Mammography 02/13/2024 10:3 0 AM EDT Narrative 02/21/2024 10:32 AM EST [facility] [address] [place] [address] Mammography Report Signed Patient: Shakira Caro MR#: [id number] [birth year] : 1950 Acct:[id number] Age/Sex: 74 / F ADM Date: 02/13/24 Loc: HO.MAMMO Attending Dr: Cr Carlton MD Ordering Physician: Cr Carlton MD Results: 1 Negative Date of Service: 02/13/24 Follow Up: 1 Year From [facility] ina Mammogram Procedure(s): MM tomosynthesis screening BI Accession Number(s): [id number] cc: Cr Carlton MD EXAMINATION: MM SCREENING DIGITAL BREAST TOMOSYNTHESIS, BILATERAL CLINICAL INFORMATION: Screening. Asymptomatic. COMPARISON: Mammography: Comparison is made with available priors TECHNIQUE: Digital breast mammography with tomosynthesis is performed in both the craniocaudal and mediolateral oblique views along with computer-aided detection (CAD). FINDINGS: There are scattered areas of fibroglandular density (ACR BI-RADS breast composition Category b). There are no significant masses, abnormal calcifications, [...] target due date for their next mammogram. Electronically signed by: Kamille Zimmer DO 02/21/2024 10:29 AM [facility] Dictated By: Kamille Zimmer DO Signed By: <Electronically signed by Kamille Zimmer DO in OV> 02/21/24 1029 DD/ 1030 TD/TT: 02/13/24 1050 Program Assistant: Procedure Note Donotuseinterpreter, Image - 02/21/2024 [facility] [place] [address] Mammography Report Signed Patient: Shakira Caro AMR#: [id number] 20 : 1950cct:[id number] Age/Sex: 74 / FADM Date: 02/13/24 Loc: HO.MAMMO Attending Dr: Cr Carlton MD Ordering Physician: Cr Carlton MDResults: 1 Negative Date of Service: 02/13/24Follow Up: 1 Year From Orig ina Mammogram Procedure(s): MM tomosynthesis screening BI Accession Number(s): [id number] cc: Cr Carlton MD EXAMINATION: MM SCREENING DIGITAL BREAST TOMOSYNTHESIS, BILATERAL CLINICAL INFORMATION: Screening. Asymptomatic. COMPARISON: Mammography: Comparison is made with available priors TECHNIQUE: Digital breast mammography with tomosynthesis is performed in both the craniocaudal and mediolateral oblique views along with computer-aided detection (CAD). FINDINGS: There are scattered areas of fibroglandular density (ACR BI-RADS breast composition Category b). There are no significant masses, abnormal calcifications, [...] target due date for their next mammogram. Electronically signed by: Kamille Zimmer DO 02/21/2024 10:29 AM EST Dictated By: Kamille Zimmer DO Signed By: <Electronically signed by Kamille Zimmer DO in OV> 02/21/24 1029 DD/ 1030 TD/TT: 02/13/24 1050 Program Assistant: Cr Carlton MD IMG BI PROCEDURES Final Res ult * Hm Colonoscopy (02/12/2013) Colonoscopy Normal Normal Narrative Renetta Winchester - 02/12/2013 Recommended 10 year follow up Historical Provider HEALTH MAINTENANCE Final Result from Last 3 Months or Most Recently Relevant to Health Maintenance Insurance [facility] STANDARD HUMAN PPO [address] [place] [address] [facility] MED[facility] STAND ADULT Care Teams Research Software Engineer Relationship Specialty Start Date End Date Cr Carlton MD [address] [place] [phone] PCP - General Internal Medicine 10/21/20
--- OUTSIDE RECORDS SUMMARY | 2024-12-31 12:21 | XMS_ITS | Encounter Summary ---
Author Organization [employer] Address [address] [place] [address] 7 [place] [address] Care Team Providers Care Piece Dyer Name Role Phone Cr Carlton MD Primary Care Provider [phone] Encounter Details Date Type Department Care Team (Late Contact Info) Description 02/14/2023 Abstract [facility] MEDICINE [address] [place] [address] Renetta Winchester Social History Tobacco Use Types Packs/Day Years [...] Encounters Date Type Department Care Team (Late Contact Info) Description 02/19/2025 9:45 AM EST Office Visit [facility] MED & PEDS [address] [place] [address] Cr Carlton MD [address] [place] [address] documented as of this encounter Procedures Procedure Name Priority Date/Time Associated Diagnosis Comments COLONOSCOPY Routine 02/12/2013 documented in this encounter Results * Colonoscopy (02/12/2013) Colonoscopy Normal Normal Narrative Renetta Winchester - 02/12/2013 Recommended 10 year follow up us Historical Provider HEALTH MAINTENANCE Final Result documented in this encounter Visit Diagnoses Not on filedocumented in this encounter Care Teams Piece Dyer Relationship Specialty Start Date End Date rC Carlton MD [address] [place] [phone] PCP - General Internal Medicine 10/21/20 documented as of this encounter
--- OUTSIDE RECORDS SUMMARY | 2024-12-31 12:21 | XMS_ITS | Encounter Summary ---
Author Organization [employer] Address [address] [place] [address] [address] [place] [address] Care Team Providers Care Chief Lock Operator Name Role Phone Cr Carlton MD Primary Care Provider [phone] Reason for Visit * Reason Comments Med Refill Encounter Details Date Type Department Care Team ([facility] Contact Info) Description 05/28/2022 Refill [facility] MEDICINE [address] [place], [place] [phone] Cr Carlton MD [address] [place], [place] [phone] Hypercholesterolemia (Primary Dx) Social History Tobacco Use Types Packs/Day Years Used Date Smoking Tobacco: Never Assessed Comments Unknown Sex and Gender Information Value Date Recorded Sex Assigned at Female 02/14/2022 10:21 AM EDT Legal Sex Female 10:21 AM EDT Gender Identity Female 02/14/2022 10:21 AM EDT Sexual Orientation Straight 11/01/2023 3: 41 PM EDT documented as of this encounter Plan of Treatment Upcoming Encounters Date Type Department Care Team ([facility] Contact Info) Description 02/19/2025 9:45 AM EST Office Visit [facility] MED & PEDS [address] [place], [place] [phone] Cr Carlton MD [address] [place], [place] [phone] documented as of this encounter Visit Diagnoses Diagnosis Hypercholesterolemia- Primary Pure hypercholesterolemia documented in this encounter Care Teams Chief Lock Operator Relationship Specialty Start Date End Date Cr Carlton MD [address] [place] [address] PCP - General Internal Medicine 10/21/20 documented as of this encounter
--- OUTSIDE RECORDS SUMMARY | 2024-12-31 12:21 | XMS_ITS | Encounter Summary ---
Author Organization Number [facility] Address [address] [place] [address] [address] [place] [address] Care Team Providers Care Bleacher Lard Name Role Phone Cr Carlton MD Primary Care Provider [phone] Encounter Details Date Type Department Care Team (Latest Contact Info) Description 09/11/2020 Abstract [facility] CONVERSIONS Dental, Provider, DDS Social History Tobacco Use Types Packs/Day Years [...] Description 02/19/2025 9:45 AM EST Office Visit [facility] MED & PEDS [address] [place] [address] Cr Carlton MD [address] [place] [address] documented as of this encounter Visit Diagnoses Not on filedocumented in this encounter Care Teams Bleacher Lard Relationship Specialty Start Date End Date Cr Carlton MD [address] [place] [address] PCP - General Internal Medicine 10/21/20 documented as of this encounter
--- OUTSIDE RECORDS SUMMARY | 2024-12-31 12:21 | XMS_ITS | Encounter Summary ---
Author Organization [employer] Address [address] [place] [address] [place], [place] [address] Care Team Providers Care Rn Diabetes Educator Name Role Phone Cr Carlton MD Primary Care Provider +1- [phone] Reason for Visit * Reason Comments Med Refill Encounter Details Date Type Department Care Team ([facility] Contact Info) Description 06/25/2022 Refill [facility] MEDICINE [address] [place], [place] [phone] Cr Carlton MD [address] [place] [address] Chronic pain syndrome Social History Tobacco Use Types Packs/Day Years [...] Upcoming Encounters Date Type Department Care Team ([facility] Contact Info) Description 02/19/2025 9:45 AM EST Office Visit [facility] CHC MED & PEDS [address] [place], [place] [phone] Cr Carlton MD [address] [place], [place] [phone] documented as of this encounter Visit Diagnoses Diagnosis Chronic pain syndrome documented in this encounter Care Teams Rn Diabetes Educator Relationship Specialty Start Date End Date Cr Carlton MD [address] [place] [address] PCP - General Internal Medicine 10/21/20 documented as of this encounter
--- OUTSIDE RECORDS SUMMARY | 2024-12-31 12:21 | XMS_ITS | Encounter Summary ---
Author Organization [employer] Address [address] [place] [address] 7 [place] [address] Care Team Providers Care Solar Energy System Installer Name Role Phone Cr Carlton MD Primary Care Provider +1- [phone] Encounter Details Date Type Department Care Team (Late Contact Info) Description 03/24/2022 Abstract [facility] ADULT DENTAL [address] [place] [address] Aleksey Lundberg DDS [address] [place], [place] [phone] Social History Tobacco Use Types Packs/Day Years [...] suspected to have Coronavirus/COVID-19? No / Unsure 03/25/2022 10:28 AM EST documented as of this encounter Plan of Treatment Upcoming Encounters Date Type Department Care Team (Late Contact Info) Description 02/19/2025 9:45 AM EST Office Visit [facility] MED & PEDS [address] [place], [place] [phone] Cr Carlton MD 505 [place] [address] documented as of this encounter Visit Diagnoses Not on filedocumented in this encounter Care Teams Solar Energy System Installer Relationship Specialty Start Date End Date Cr Carlton MD [address] [place] [address] PCP - General Internal Medicine 10/21/20 documented as of this encounter
== END 2024-12-31 09:40 | disposition home or self-care (01) ==
LOC: HO.CHCLDS 09:39
PROVIDERS: Visit Provider Internal Medicine
DX: E78.00 Pure hypercholesterolemia, unspecified (principal)
CPT/HCPCS: 36415; 80053; 80061; 84443; 85025

== ENCOUNTER 2025-04-16 10:47 | Outpatient (REF) | payer MEDICARE, SELFPAY ==
--- OUTSIDE RECORDS SUMMARY | 2025-04-16 12:11 | XMS_ITS | Clinical Summary ---
Author Organization [employer] Address [address] [place] [address] 7t [place] [address] Care Team Providers Care Commodity Manager Name Role Phone Cr Carlton MD Primary Care Provider +1- [phone] Allergies No known active allergies Medications calcium carbonate (Os-Gee) 1250 (500 Ca) MG tablet Take 1 tablet by mouth at bed time. 05/04/19 17 Active alendronate (Fosamax) 70 MG tablet take 1 Tablet by Oral route once a week 12/25/19 21 Active B Complex Vitamins (vitamin B complex) tabletIndicatio ns:Macrocytosis TAKE 1 TABLET BY MOUTH EVERY DAY ONE DOSE 30 tablet 11 03/28/20 22 Active B-Complex, Folic Acid, tabletIndicatio ns:Other specified diseases of blood and blood-forming organs TAKE ONE TABLET BY MOUTH EVERY DAY 30 tablet 11 04/24/19 24 Active betamethasone valerate (Valisone) 0.1 % ointment Apply topically 2 times daily. 90 g 07/24/19 24 Active Vitamins-Lipotr opics (B Complex Formula 1, Lipotrop,) tabletIndicatio ns:Other specified diseases of blood and blood-forming organs TAKE ONE TABLET BY MOUTH EVERY DAY 30 tablet 11 06/28/19 25 Active ezetimibe (Zetia) 10 MG tablet TAKE ONE TABLET BY MOUTH EVERY DAY 30 tablet 5 09/18/19 25 Active atorvastatin (Lipitor) 80 MG tabletIndicatio ns:Hypercholest erolemia TAKE ONE TABLET BY MOUTH EVERY DAY 30 tablet 3 11/09/19 25 Active famotidine (Pepcid) 20 MG tabletIndicatio ns:Gastroesopha geal reflux disease without esophagitis Take 1 tablet (20 mg) by mouth Once per day. 30 tablet 11 12/20/19 25 026 Active melatonin 5 MG tabletIndicatio ns:Primary insomnia 1 tab at bedtime 30 tablet 2 12/20/19 25 Active ibuprofen 600 MG tabletIndicatio ns:Chronic pain syndrome TAKE ONE TABLET THREE TIMES DAILY NEEDED FOR PAIN WITH FOOD 60 tablet 03/12/20 25 Active cholecalciferol VITAMIN D (Vitamin D-3) 50 MCG (2000 UT) capsuleIndicati ons:Low vitamin D level TAKE ONE CAPSULE BY MOUTH EVERY DAY 30 capsule 5 03/25/20 25 Active cholecalciferol VITAMIN D (Vitamin D-3) 50 MCG (2000 UT) capsuleIndicati ons:Low vitamin D level TAKE ONE CAPSULE BY MOUTH EVERY DAY 30 capsule 5 08/14/19 25 025 Discontinued Active Problems Problem Noted [...] Encounters Date Type Department Care Team Description 03/25/2025 Refill [facility] MEDICINE [address] [place] [address] Cr Carlton MD Low vitamin D level 03/12/2025 Refill [facility] MEDICINE [address] [place] [address] Cr Carlton MD Chronic pain syndrome from [...] is your housing situation today? I have braydenbenjamin lau 12/19/[address] you [...] 12/19/2024 9:40 AM EDT Plan of Treatment Health Maintenance Due Date Last Done Comments CT Colonography 1950 Dental Oral Exam 1950 Dental Prophylaxis 1950 Dental X-Ray: Bitewings 1950 Dental X-Ray: Full Mouth 1950 FIT DNA/Cologuard 1950 FIT 1950 FOBT 1950 Sigmoidoscopy 1950 Colonoscopy 02/12/2023 02/12/2013 Colorectal Cancer Screening 02/12/2023 COVID-19 Vaccine ( season) 2024 01/25/2022, 08/13/2020, 07/23/2020 Influenza Vaccine (#1) 2024 , 01/12/2023, 01/25/2022, Additional history exists Alcohol/Substance Use Screening 12/19/2025 12/19/2024 Depression Screening 12/19/2025 12/19/2024, 12/20/19 SDOH Screening 12/19/2025 12/19/2024 Tobacco Screening 12/19/2025 12/19/2024 Mammogram 02/12/2026 02/13/2024, 01/16, 12/27/2021, Additional history exists RSV Patients and Patients Aged 60 years or older (1 - 1-dose 75+ series) 02/08/2027 DTaP/Tdap/Td Vaccines (3 - Td or Tdap) 12/19/2034 12/19/2024, 11/07/2012 Zoster Vaccines Completed 02/22/2021, 10/2020, 11/28/2016 Hepatitis C Screening Completed 03/11/2024 Pneumococcal Vaccine: 50+ Years Completed 12/19/2024 HIB Vaccines Aged Out No longer eligi ble based on patient's age to complete this topic HPV Vaccines Aged Out No longer eligi ble based on patient's age to complete this topic Hepatitis A Vaccines Aged Out No long er eligible based on patient's age to complete this topic Hepatitis B Vaccines Aged Out No long er eligible based on patient's age to complete [...] Procedure Name Priority Date/Time Associated Diagnosis Comments HEPATITIS C AB W/REFL TO HCV RNA, QN, PCR Routine 03/11/2024 8:57 AM EST Skin rash BI MAMMOGRAM SCREENING TOMOSYNTHESIS BILATERAL Routine 02/13/2024 10:30 AM EDT HM COLONOSCOPY Routine 02/12/2013 from Last 3 Months or Most Recently Relevant to Health Maintenance Results * Hepatitis C Antibody with Reflex to HCV, RNA, Quantitative, Real-Time PCR (03/11/2024 8:57 AM EST) Hepatitis C Antibody Nonreactive Nonreactive [facility] Comment:Antibodies to HCV no t detected; does not exclude early acuteHCV infection. Blood Venous blood specimen / Unknown 03/11/2024 8:57 AM EST 03/11/2024 2:13 PM EST us Cr Carlton MD LAB BLOOD ORDERABLES Final Result [facility] [address] [place] [address] [phone] * BI Mammogram Screening Tomosynthesis Bilateral (02/13/2024 10:30 AM EDT) Anatomical Region Laterality Modality Breast Bilateral Mammography 02/13/2024 10:3 0 AM EDT Narrative 02/21/2024 10:32 AM EST [address] [place] [address] Mammography Report Signed Patient: Shakira Caro MR#: [id number] [birth year] : 1950 Acct:[id number] Age/Sex: 74 / F ADM Date: 02/13/24 Loc: HO.MAMMO Attending Dr: Cr Carlton MD Ordering Physician: Cr Carlton MD Results: 1 Negative Date of Service: 02/13/24 Follow Up: 1 Year From [facility] Mammogram Procedure(s): MM tomosynthesis screening BI Accession Number(s): [id number] cc: Cr Carlton MD EXAMINATION: MM SCREENING [...] 02/21/24 1029 DD/ 1030 TD/TT: 02/13/24 1050 Cycle Consultant: Procedure Note Donotuseinterpreter, Image - 02/21/2024 [facility] [address] [place], [place] [address] Mammography Report Signed Patient: Shakira Caro AMR#: [id number] 20 : 1950cct:[id number] Age/Sex: 74 / FADM Date: 02/13/24 Loc: HO.MAMMO Attending Dr: Cr Carlton MD Ordering Physician: Cr Carlton MDResults: 1 Negative Date of Service: 02/13/24Follow Up: 1 Year From Orig inal Mammogram Procedure(s): MM tomosynthesis screening BI Accession Number(s): [id number] cc: Cr Carlton MD EXAMINATION: MM SCREENING [...] 02/21/24 1029 DD/ 1030 TD/TT: 02/13/24 1050 Cycle Consultant: us Cr Carlton MD IMG BI PROCEDURES Final Res ult * Hm Colonoscopy (02/12/2013) Colonoscopy Normal Normal Narrative Renetta [place] - 02/12/2013 Recommended 10 year follow up us Historical Provider HEALTH MAINTENANCE Final Result from Last 3 Months or Most Recently Relevant to Health Maintenance Insurance [facility] [employer] H[employer] MEDICARE [address] [place] [address] [facility] Care Teams Commodity Manager Relationship Specialty Start Date End Date Cr Carlton MD [address] [place] [address] PCP - General Internal Medicine 10/21/20
--- OUTSIDE RECORDS SUMMARY | 2025-04-16 12:11 | XMS_ITS | Encounter Summary ---
Author Organization [employer] Address [address] [facility] 7t [place] [address] Care Team Providers Care Ceramic Mold Designer Name Role Phone Cr Carlton MD Primary Care Provider +1- [phone] Reason for Visit * Reason Comments Med Refill Encounter Details Date Type Department Care Team (Late st Contact Info) Description 06/25/2022 Refill [facility] MEDICINE [address] [place], [place] [phone] Cr Carlton MD [address] [place] [address] Chronic pain syndrome Social History Tobacco Use Types Packs/Day Years Used Date Smoking Tobacco: Never Assessed Comments Unknown Sex and Gender Information Value Date Recorded Sex Assigned at Female 02/14/2022 10:21 AM EDT Legal Sex Female 10:21 AM EDT Gender Identity Female 02/14/2022 10:21 AM EDT Sexual Orientation Straight 11/01/2023 3: 41 PM EDT documented as of this encounter Plan of Treatment Not on file documented as of this encounter Visit Diagnoses Diagnosis Chronic pain syndrome documented in this encounter Care Teams Ceramic Mold Designer Relationship Specialty Start Date End Date Cr Carlton MD [address] [place] [address] PCP - General Internal Medicine 10/21/20 documented as of this encounter
--- OUTSIDE RECORDS SUMMARY | 2025-04-16 12:11 | XMS_ITS | Encounter Summary ---
Author Organization [employer] Address [address] [place] [address] 7 [place] [address] Care Team Providers Care Road Grader Operator Name Role Phone Cr Carlton MD Primary Care Provider +1- [phone] Encounter Details Date Type Department Care Team (Latest Contact Info) Description 09/11/2020 Abstract [facility] CONVERSIONS Dental, Provider, DDS Social History Tobacco [...] on filedocumented in this encounter Care Teams Road Grader Operator Relationship Specialty Start Date End Date Cr Carlton MD [address] [place] [address] PCP - General Internal Medicine 10/21/20 documented as of this encounter
--- OUTSIDE RECORDS SUMMARY | 2025-04-16 12:11 | XMS_ITS | Encounter Summary ---
Author Organization [employer] Address [address] [facility] 7t [place] [address] Care Team Providers Care Paid Intern Name Role Phone Cr Carlton MD Primary Care Provider +1 [phone] Encounter Details Date Type Department Care Team (Late st Contact Info) Description 02/08/2023 Orders Only [facility] CHC MED & PEDS [address] [place] [address] Cr Carlton MD [address] [place] [address] Other osteoporosis without current pathological fracture (Primary [...] as of this encounter Plan of Treatment Scheduled Orders Name Type Priority Associated Diagnoses [...] AM EDT Narrative 2023 10:32 AM EDT [address] [address] XRay Report Signed Patient: Shakira Caro MR#: [id number] [birth year] : 1950 Acct:[id number] Age/Sex: 73 / F ADM Date: 02/08/23 Loc: [facility] Attending Dr: Cr Carlton MD Ordering Physician: Cr Carlton MD Date of Service: 02/08/23 Procedure(s): XR chest 2V Accession Number(s): [id number] cc: Cr Carlton MD EXAMINATION: XR CHEST [...] in OV> 02/09/23 1027 DD/ 0917 TD/TT: Contract Analyst: Procedure Note Donotuseinterpreter, Image - [address] [address] XRay Report Signed Patient: Shakira Caro AMR#: [id number] [birth year] : 1950cct:[id number] Age/Sex: 73 / FADM Date: 02/08/23 Loc: [facility] Attending Dr: Cr Carlton MD Ordering Physician: Cr Carlton MD Date of Service: 02/08/23 Procedure(s): XR chest 2V Accession Number(s): [id number] cc: Cr Carlton MD EXAMINATION: XR CHEST [...] Cueva MD in OV> 02/09/23 1027 DD/ 6 TD/TT: Contract Analyst: Cr Carlton MD IMG XR PROCEDURES Final Res ult * BI Mammogram Screening Tomosynthesis Bilateral (02/08/2023 8:41 AM EDT) Anatomical Region Laterality Modality Breast Bilateral Mammography 02/08/2023 8:41 AM EDT Narrative 02/25/2023 1:38 PM [facility]'[address] [place] [address] Mammography Report Signed Patient: Shakira Caro MR#: [id number] [birth year] : 1950 Acct:[id number] Age/Sex: 73 / F ADM Date: 02/08/23 Loc: HO.MAMMO Attending Dr: Cr Carlton MD Ordering Physician: Cr Carlton MD Results: 1 Negative Date of Service: 02/08/23 Follow Up: 1 Year From Orig ina Mammogram Procedure(s): MM tomosynthesis screening BI Accession Number(s): [id number] cc: Cr Carlton MD EXAMINATION: MM SCREENING [...] in OV> 02/25/23 1334 DD/ 0841 TD/TT: Contract Analyst: Procedure Note Donotuseinterpreter, Image - 02/25/2023 [facility] [address] [place] [address] Mammography Report Signed Patient: Shakira Caro AMR#: [id number] 20 : 1950cct:[id number] Age/Sex: 73 / FADM Date: 02/08/23 Loc: [facility].MAMMO Attending Dr: Cr Carlton MD Ordering Physician: Cr Carlton MDResults: 1 Negative Date of Service: 02/08/23Follow Up: 1 Year From [facility] Mammogram Procedure(s): MM tomosynthesis screening BI Accession Number(s): [id number] cc: Cr Carlton MD EXAMINATION: MM SCREENING [...] in OV> 02/25/23 1334 DD/ 0841 TD/TT: Contract Analyst: Cr Carlton MD IMG BI PROCEDURES Edited Re sult - Final documented in this encounter Visit Diagnoses Diagnosis Other osteoporosis without current pathological fracture- Primary documented in this encounter Care Teams Paid Intern Relationship Specialty Start Date End Date Cr Carlton MD [address] [place] [address] PCP - General Internal Medicine 10/21/20 documented as of this encounter
--- OUTSIDE RECORDS SUMMARY | 2025-04-16 12:11 | XMS_ITS | Encounter Summary ---
Author Organization [employer] Address [address] [facility] 7t [place] [address] Care Team Providers Care Elevator Repairer Helper Name Role Phone Cr Carlton MD Primary Care Provider +1- [phone] Reason for Visit * Reason Comments Med Refill Encounter Details Date Type Department Care Team (Late st Contact Info) Description 05/28/2022 Refill [facility] MEDICINE [address] [place], [place] [phone] Cr Carlton MD [address] [place] [address] Hypercholesterolemia (Primary Dx) Social History Tobacco Use [...] hypercholesterolemia documented in this encounter Care Teams Elevator Repairer Helper Relationship Specialty Start Date End Date Cr Cartlon MD [address] [place], [place] [phone] PCP - General Internal Medicine 10/21/20 documented as of this encounter
--- OUTSIDE RECORDS SUMMARY | 2025-04-16 12:11 | XMS_ITS | Encounter Summary ---
Author Organization [employer] Address [address] [place] [address] [address] [place] [address] Care Team Providers Care Special Delivery Worker Name Role Phone Cr Carlton MD Primary Care Provider +1 [phone] Reason for Referral * Imaging (Routine) - Closed Specialty Diagnoses / Procedures Referred By Contharmony trinidad Referred To Contact Radiology Diagnoses Transaminitis Fatty liver Procedures US Abdomen Complete Cr Carlton MD [address] [place] [address] Phone: tel: fax: [address] [address] Phone: tel: fax: Referral ID Status Reason Start Date Expiration Date Visits Re quested Visits Authorized [id number] Closed 03/11/2024 03/11/2025 1 1 Encounter Details Date Type Department Care Team (Late st Contact Info) Description 03/11/2024 Orders Only [facility] CHC MED & PEDS [address] [place], [place] [phone] Cr Carlton MD [address] [place], [place] [phone] Transaminitis (Primary Dx); Fatty liver; Macrocytosis Social [...] organs documented in this encounter Care Teams Special Delivery Worker Relationship Specialty Start Date End Date Cr Carlton MD [address] [place] [address] PCP - General Internal Medicine 10/21/20 documented as of this encounter
--- OUTSIDE RECORDS SUMMARY | 2025-04-16 12:11 | XMS_ITS | Encounter Summary ---
Author Organization [employer] Address [address] [facility] 7t [place] [address] Care Team Providers Care Contract Agent Name Role Phone Cr Carlton MD Primary Care Provider +1- [phone] Encounter Details Date Type Department Care Team (Late st Contact Info) Description 03/24/2022 Abstract [facility] ADULT DENTAL [address] [place], [place] [phone] Aleksey Lundberg DDS [address] [place], [place] [phone] Social History Tobacco Use Types Packs/Day Years [...] on filedocumented in this encounter Care Teams Contract Agent Relationship Specialty Start Date End Date Cr Carlton MD [address] [place] [address] PCP - General Internal Medicine 10/21/20 documented as of this encounter
--- OUTSIDE RECORDS SUMMARY | 2025-04-16 12:11 | XMS_ITS | Encounter Summary ---
Author Organization [employer] Address [address] [place] [address] [address] [place] [address] Care Team Providers Care Packerhead Machine Operator Name Role Phone Cr Carlton MD Primary Care Provider +1- [phone] Reason for Referral * Imaging (Routine) - Closed Specialty Diagnoses / Procedures Referred By Contac t Referred To Contact Radiology Diagnoses Transaminitis Procedures US Abdomen Comp w elastography Cr Carlton MD [address] [place] [address] Phone: tel: fax: [address] [address] Phone: tel: fax: Referral ID Status Reason Start Date Expiration Date Visits Re quested Visits Authorized [id number] Closed 01/01/2025 01/01/2026 1 1 Encounter Details Date Type Department Care Team (Late st Contact Info) Description 01/01/2025 Orders Only [facility] CHC MED & PEDS [address] [place], [place] [phone] Cr Carlton MD [address] [place], [place] [phone] Transaminitis (Primary Dx) Social History Tobacco Use Types Packs/Day Years Used Date Smoking Tobacco: Never Smokeless Tobacco: Never Depression Answer Date Recorded Patient Health Questionnaire-9 [...] Type Priority Associated Diagnoses Orde r Schedule Hepatitis B Surface Antibody, Qualitative Lab Routine Transaminitis Expected: 01/01/2025 (Approximate), Expires: 01/01/2026 US Abdomen Comp w elastography Imaging Routine Transaminitis Expected: 01/01/2025, Expires: 01/01/2026 Smooth Muscle Antibody with Reflex to Titer Lab Routine Transaminitis Expected: 01/01/2025 (Approximate), Expires: 01/01/2026 Immunoglobulins, Quantitative, IgA, IgG, IgM Lab Routine Transaminitis Expected: 01/01/2025 (Approximate), Expires: 01/01/2026 Prothrombin Time-INR Lab Routine Transaminitis Expected: 01/01/2025, Expires: 01/01/2026 Ferritin Lab Routine Transaminitis Expected: 01/01/2025, Expires: 01/01/2026 Iron And Total Iron Binding Capacity Lab Routine Transaminitis Expected: 01/01/2025, Expires: 01/01/2026 Alpha 1 Antitrypsin Lab Routine Transaminitis Expected: 01/01/2025 (Approximate), Expires: 01/01/2026 documented as of this encounter Visit Diagnoses Diagnosis Transaminitis- Primary Nonspecific elevation of levels of transaminase or lactic acid dehydrogenase (LDH) documented in this encounter Additional Health Concerns Assessment Noted Time PHQ-9 Depression Total Score: 4 12/20/19 25 10:26 AM EDT documented as of this encounter Care Teams Packerhead Machine Operator Relationship Specialty Start Date End Date Cr Carlton MD [address] [place] [address] PCP - General Internal Medicine 10/21/20 documented as of this encounter
--- OUTSIDE RECORDS SUMMARY | 2025-04-16 12:11 | XMS_ITS | Encounter Summary ---
Author Organization [employer] Address [address] [facility] 7t [place] [address] Care Team Providers Care Mammography Technologist Name Role Phone Cr Carlton MD Primary Care Provider +1- [phone] Encounter Details Date Type Department Care Team (Late st Contact Info) Description 02/14/2023 Abstract [facility] MEDICINE [address] [place] [address] Renetta [place] Social History Tobacco Use Types [...] on file documented as of this encounter Procedures Procedure Name Priority Date/Time Associated Diagnosis Comments COLONOSCOPY Routine 02/12/2013 documented in this encounter Results * Colonoscopy (02/12/2013) Colonoscopy Normal Normal Narrative Renetta [place] - 02/12/2013 Recommended 10 year follow up us Historical Provider HEALTH MAINTENANCE Final Result documented in this encounter Visit Diagnoses Not on filedocumented in this encounter Care Teams Mammography Technologist Relationship Specialty Start Date End Date Cr Carlton MD [address] [place], [place] [phone] PCP - General Internal Medicine 7/7/21 documented as of this encounter
== END 2025-04-16 10:48 | disposition home or self-care (01) ==
LOC: HO.MAMMO 10:47
PROVIDERS: Visit Provider Internal Medicine
DX: Z12.31 Encounter for screening mammogram for malignant neoplasm of breast (principal)
CPT/HCPCS: 77063; 77067

== ENCOUNTER → 2025-04-16 11:00 | Outpatient (BNV) | payer MEDICARE, SELFPAY | PROVIDERS: Visit Provider Internal Medicine | DX: Z12.31 Encounter for screening mammogram for malignant neoplasm of breast (principal) | CPT/HCPCS: 77063; 77067 ==